=== PATIENT | female | born 1930 | race Caucasian/White ===

== ENCOUNTER 2020-02-28 16:30 | Observation (INO) | payer MEDICARE, BC ==
--- NOTE | 2020-02-28 17:25 | PCM.HP.2 ---
H&P History of Present Illness - General Date of Service: 02/28/20 Admit Problem/Dx: Fall and weakness, LE swelling. Decreased appetite Source of Information: Other (PALLET [employer]ER notes reviwed and patient history and physical ) History Limitations: Reports: Other (weakness risk for falls) - History of Present Illness Onset of Symptoms: Reports: Other (weeks progressively worsening) Symptom Onset Date: 02/27/20 (Fell one day ago) Duration of Symptoms: Reports: Week(s): Location: Reports: Back, Lower Extremity, Right Severity: Moderate Improves with: Reports: None Worsens with: Reports: Movement Associated Symptoms: Reports: Weakness Other HPI/Comments: No LE or back pain noted. 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: Musculoskeletal History: Reports: Other (See Below) (old compression fx history) H&P Review of Systems - Review of Systems: Review Of Systems: See Below General: Reports: Weakness, Fatigue HEENT: Reports: No Symptoms Pulmonary: Reports: No Symptoms Cardiovascular: Reports: No Symptoms Gastrointestinal: Reports: No Symptoms Genitourinary: Reports: Frequency, Urgency Musculoskeletal: Reports: Muscle Stiffness (lower extremity weakness) Skin: Reports: No Symptoms Psychiatric: Reports: No Symptoms Neurological: Reports: No Symptoms Hematologic/Lymphatic: Reports: Easy Bruising Immunologic: Reports: No Symptoms Exam - Exam Exam: See Below - Exam General: Alert, Oriented, Cooperative HEENT: PERRLA Neck: Supple, Trachea Midline Lungs: Clear to Auscultation, Normal Respiratory Effort Cardiovascular: Regular Rate, Regular Rhythm GI/Abdominal Exam: Normal Bowel Sounds, Soft, Non-Tender (Female) Exam: Deferred Rectal (Female) Exam: Deferred Back Exam: Other (derferred in bed) Extremities: Pedal Edema (2+) Peripheral Pulses: 2+: Posterior Tibial (L), Posterior Tibial (R) Skin: Warm, Dry, Intact Neurological: Cranial Nerves Intact Neuro Extensive - Mental Status: Alert, Oriented x3, Normal Mood/Affect, Normal Cognition, Memory Intact Neuro Extensive - Motor, Sensory, Reflexes: CN II-XII Intact Psychiatric: Alert, Normal Affect, Normal Mood - Patient Data Lab Results Last 24 hrs: Drawn in clinic refer to chart. #1 Interpretation EKG Date: 02/28/20 Rhythm: NSR (Normal ECG) Sepsis Event Note - Evaluation Current Stage of Sepsis: Ruled Out Reason for Ruling Out Sepsis: WBC count WNL. *Q Meaningful Use (ADM) - VTE *Q VTE Mechanical Contraindications *Q: At Risk for Falls - VTE Risk Assess *Q Each Risk Factor Represents 1 Point: Swollen Legs, Current, Obesity ( BMI > 25 kg/m2), Congestive heart failure (CHF), Medical Patient Currently on Bedrest Total Score 1 Point Risk Factors: 4 Each Risk Factor Represents 3 Points: Age 75 Years or Greater (non smoker) Total Score 3 Point Risk Factors: 3 - Problem List (1) Edema due to congestive heart failure SNOMED Code(s): 506837759, 826288009 ICD Code: I50.9 - HEART FAILURE, UNSPECIFIED Status: Acute Priority: Medium Current Visit: Yes (2) Weakness generalized SNOMED Code(s): 85075771 ICD Code: R53.1 - WEAKNESS Status: Chronic Priority: Medium Current Visit: Yes (3) Fall SNOMED Code(s): 7563234, 944943294 ICD Code: W19.XXXA - UNSPECIFIED FALL, INITIAL ENCOUNTER Status: Acute Priority: Medium Current Visit: Yes Qualifiers: Encounter type: initial encounter Qualified Code(s): W19.XXXA - Unspecified fall, initial encounter Problem List Initiated/Reviewed/Updated: Yes Orders Last 24hrs: Active Orders 24 hr Category Date Time Status Voluntary Admission [RC] ASDIRECTED Care 02/28/20 17:17 Ordered Lumbar Spine wo Cont [CT] Routine Exams 02/28/20 17:09 Ordered Pelvis w wo Cont [CT] Routine Exams 02/28/20 17:11 Ordered CORONAVIRUS COVID-19 RAPID [MOLEC] Stat Lab 02/28/20 17:12 Ordered CULTURE MRSA SURVEY [RM] Routine Lab 02/28/20 17:18 Ordered Furosemide [Lasix] Med 02/28/20 17:30 Pending 80 mg PO DAILY Medication Orders Furosemide (Lasix) 80 mg PO DAILY ROSEANNA Stop: 03/01/20 08:01 Assessment/Plan Comment:: 1)Re check CMP in AM. 2)Get CT Lumbar, pelvis, thoracic spine. 3)Order Lasix 80mg to be given now. Then 40mg BID. 4)MRI pelvis. 5)PT consult. 6)Order Met Bone tumor marker labs. - Mortality Measure Prognosis:: Good
[2020-02-28] MEDS ORDERED: Furosemide 80 MG Tab PO ONE (18:00)
[2020-02-28] MEDS: Enoxaparin 40 MG/0.4 ML Syringe SUBCUT SCH (19:50)
--- NOTE | 2020-02-28 20:11 | PCM.CONS ---
H&P History of Present Illness - General Date of Service: 02/28/20 Admit Problem/Dx: Fall and weakness, LE swelling. Decreased appetite - History of Present Illness Initial Comments - Free Text/Narative: Amy Ghotra Hospitalist ADMISSION SUPPORT NOTE eHospitalist was contacted by Nelly Bermudez with request of admission support. Chief complaint: Weakness and frequent falls HPI: The patient reports gradual weakness over the past month. She states "I just fall down all the time". She describes that her legs get shaky and then she "just goes down". She has had at least 2 falls over the past month. Last night EMS was called to assist her and then recommended that she follow-up with her provider and so she came in today for evaluation. She reports weight loss of about 7 to 8 pounds over the past few months. She denies hitting her head or any loss of consciousness during the falls. She has right shoulder chronic pain and gets injections in that shoulder to help manage the pain. Review of systems other than mentioned above is negative - Related Data Allergies/Adverse Reactions: Allergies Allergy/AdvReac Type Severity Reaction Status Date / Time gadobenate dimeglumine Allergy Anaphylactic Verified 02/28/20 18:11 [From Multihance] Shock SOPHIE Inhibitors AdvReac Cough Verified 02/28/20 18:11 Home Medications: Home Meds Furosemide [Lasix] 40 mg PO BID 02/28/20 [History] Metoprolol Tartrate 37.5 mg PO BID 02/28/20 [History] Simvastatin 40 mg PO DAILY 02/28/20 [History] Past Medical History HEENT History: Reports: Impaired Vision, Macular Degeneration Cardiovascular History: Reports: Heart Failure (Hypertension) 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: Musculoskeletal History: Reports: Other (See Below) (old compression fx history) Endocrine/Metabolic History: Reports: Osteoporosis Oncologic (Cancer) History: Reports: Breast - Infectious Disease History Infectious Disease History: Reports: Chicken Pox, Measles, Mumps - Past Surgical History HEENT Surgical History: Reports: None Cardiovascular Surgical History: Reports: None Musculoskeletal Surgical History: Reports: Hip Replacement Oncologic Surgical History: Reports: Lumpectomy, Other (See Below) Other Oncologic Surgeries/Procedures: 30 years ago, Left side - History Comment History Comment: Home Medications: Reviewed see EMR for details. Pertinent Medical History: Breast cancer, HTN, dyslipidemia, right lumpectomy, bilateral cataract surgery, left total hip arthroplasty. Pertinent Social History: , denies smoking or drugs of abuse, she rarely drinks alcohol Social & Family History - Tobacco Use Tobacco Use Status *Q: Never Tobacco User Second Hand Smoke Exposure: No - Caffeine Use Caffeine Use: Reports: Coffee - Recreational Drug Use Recreational Drug Use: No H&P Review of Systems - Review of Systems: Review Of Systems: Comprehensive ROS is negative, except as noted in HPI. Exam - Exam Exam: See Below - Vital Signs Vital Signs: Last Vital Signs Temp 36.2 C 02/28/20 16:39 Pulse 63 02/28/20 16:39 Resp 16 02/28/20 16:39 BP 196/85 H 02/28/20 16:39 Pulse Ox 97 02/28/20 16:39 Weight: 66.224 kg - Exam Physical Exam Comments:: Exam (performed via interactive video with assistance of bedside nurse): General: Alert, cooperative, no acute distress HEENT: Pupils reported ERRL, oral mucosa pink and moist without erythema Lungs: Normal effort with diminished breath sounds at right base CV: Regular rate and rhythm without loud murmur rub or gallop Abdomen: Soft, nontender, nondistended Ext: No pitting edema noted Skin: No rashes, bruises or lesions appreciated on gross visualization of exposed skin Neuro: Alert, oriented x 3. CN III -VII, XI, XII grossly intact, moves all extremities without any significant focal deficit - Patient Data Lab Results Last 24 hrs: Laboratory Results - last 24 hr 02/28/20 02/28/20 02/28/20 Range/Units 16:25 17:48 18:00 Whole Blood INR 0.9 L (1.0-3.5) D-Dimer, Quantitative 1180 H (0-400) ng/mL SARS-CoV-2 RNA (KAMILA) Negative (NEGATIVE) Sepsis Event Note - Evaluation Sepsis Screening Result: No Definite Risk - Focused Exam Vital Signs: Vital Signs Temp Pulse Resp BP Pulse Ox 02/28/20 16:39 36.2 C 63 16 196/85 H 97 *Q Meaningful Use (ADM) - VTE *Q VTE Mechanical Contraindications *Q: At Risk for Falls Consult PN Assessment/Plan Procedures: Procedures ASSAY OF NATRIURETIC PEPTIDE (07/27/19) ASSAY OF TROPONIN QUANT (12/03/14) ASSAY THYROID STIM HORMONE (07/27/19) C-REACTIVE PROTEIN HS (07/27/19) CHEST X-RAY 1 VIEW FRONTAL (12/03/14) CHEST X-RAY 2VW FRONTAL&LATL (04/10/15) COMP SCREEN MAMMOGRAM ADD-ON (12/16/15) COMPLETE CBC W/AUTO DIFF WBC (12/14/19) COMPREHEN METABOLIC PANEL (07/27/19) CRITICAL CARE ADDL 30 MIN (12/03/14) CRITICAL CARE FIRST HOUR (12/03/14) CT HEAD/BRAIN W/O DYE (11/20/14) DXA BONE DENSITY AXIAL (01/24/19) ELECTROCARDIOGRAM TRACING (07/27/19) EMERGENCY DEPT VISIT (12/03/14) EXTRACRANIAL BILAT STUDY (08/02/19) GAIT TRAINING THERAPY (08/29/19) HYDRATE IV INFUSION ADD-ON (12/03/14) INSERT TEMP BLADDER CATH (12/03/14) LIPID PANEL (01/08/19) MAMMOGRAM SCREENING (11/03/12) METABOLIC PANEL TOTAL CA (12/14/19) MRI BRAIN STEM W/O & W/DYE (12/03/14) NEUROMUSCULAR REEDUCATION (05/11/19) PT EVAL LOW COMPLEX 20 MIN (10/11/19) RBC SED RATE NONAUTOMATED (07/27/19) ROUTINE VENIPUNCTURE (12/14/19) SCR MAMMO BI INCL CAD (01/08/19) THER/PROPH/DIAG INJ IV PUSH (12/03/14) THER/PROPH/DIAG INJ SC/IM (12/03/14) THER/PROPH/DIAG IV INF INIT (12/03/14) THERAPEUTIC ACTIVITIES (10/24/19) THERAPEUTIC EXERCISES (10/24/19) TISSUE EXAM BY PATHOLOGIST (12/25/12) TX GASTRO INTUB W/ASP (12/03/14) TX/PRO/DX INJ NEW DRUG ADDON (12/03/14) URINALYSIS AUTO W/SCOPE (07/27/19) URINE CULTURE/COLONY COUNT (07/27/19) VITAMIN B-12 (07/27/19) VITAMIN D 25 HYDROXY (07/27/19) X-RAY EXAM HIP UNI 2-3 VIEWS (07/16/19) X-RAY EXAM OF HIP (03/26/13) X-RAY EXAM OF SHOULDER (01/21/20) Problem List Initiated/Reviewed/Updated: Yes Plan: Recent lab/Imaging: Reviewed see EMR for details Assessment and Plan: 1. Frequent falls and weakness-I think this is mostly related to deconditioning. I am getting the impression that her weakness has been progressive. PT/OT to evaluate 2. Sclerosis of sacrum-concern for metastatic disease this will require further evaluation 3. Elevated BNP-I am uncertain whether this patient has a history of heart failure. She is on maintenance twice daily Lasix. She appears euvolemic. 2D echo to assess cardiac function 4. Renal insufficiency-monitor 5. Elevated calcium-obtain ionized calcium in a.m. 6. DVT prophylaxis-Lovenox 7. CODE STATUS full code-discussed with patient Chart review was performed as well as evaluation of the patient via video. Thank you for involving ehospitalist. Please contact [phone] if further assistance is needed.
[2020-02-28] MEDS: Metoprolol Tartrate 25 MG Tab*PT OWN MED PO SCH (20:21)
[2020-02-28] MEDS ORDERED: Ondansetron 4 MG/2 ML SDV IV PRN (20:51)
[2020-02-28] MEDS ORDERED: Sodium Chloride 0.9% 10 ML Syringe FLUSH PRN (20:51)
[2020-02-28] MEDS ORDERED: Acetaminophen 325 MG Tab PO PRN (20:51)
[2020-02-28] MEDS ORDERED: Potassium Chloride 20 MEQ Tab.ER ONE (20:51)
[2020-02-29] MEDS ORDERED: Furosemide 40 MG Tab PO SCH (06:00)
[2020-02-29] MEDS: Furosemide 20 MG Tab *PT OWN MED PO SCH ×2 (07:41→17:42)
[2020-02-29] MEDS: Metoprolol Tartrate 25 MG Tab*PT OWN MED PO SCH ×2 (07:41→19:50)
--- NOTE | 2020-02-29 07:41 | CT ---
DATE OF SERVICE: 02/28/20 CLINICAL DATA: fall UNENHANCED PELVIC CT: Multislice axial acquisition was performed. Axial images and sagittal and coronal reformations are reviewed. The patient is status post right total hip arthroplasty. The prosthesis appears intact. There are chronic fractures of the right superior and inferior pubic rami. They do not appear significantly changed from plain films dated 07/16/19. There is marked sclerosis within the sacrum at the S1 level. This may be related to prior trauma. The possibility of sclerotic metastatic disease should be considered. I do not see any acute fractures of the pelvis or sacrum. There is degenerative disc disease in the lower lumbar spine. [id number] [facility]
[2020-02-29] MEDS: Enoxaparin 40 MG/0.4 ML Syringe SUBCUT SCH (09:27)
[2020-02-29] MEDS ORDERED: Potassium Chloride 20 MEQ Tab.ER PO ONE (10:49)
--- NOTE | 2020-02-29 12:12 | CT ---
DATE OF SERVICE: 02/28/20 CLINICAL DATA: fall LUMBAR SPINE CT: Multislice axial acquisition from T9 to S5 was performed. Axial images and sagittal and coronal reformations are reviewed. No priors. There is diffuse osteopenia. There is a severe compression fracture of the T12 vertebra with approximately 80 to 90% loss of height. This does appear to be chronic. The posterior cortex is displaced posteriorly approximately 5 mm producing some narrowing of the spinal canal in the AP dimension. There is also a partial compression fracture of the T10 vertebra with approximately 40 to 50% loss of height anteriorly. This also appears to be chronic. I do not see any definite acute fractures. There is degenerative disc disease throughout the lumbar spine. There is central and foraminal stenosis at multiple levels. I do not see any extruded or protruding discs. There is extensive sclerosis within the sacrum at the S1 level. The possibility of sclerotic metastatic disease should be considered. There is calcification of the abdominal aorta. No aneurysm. There are degenerative changes including the SI joints bilaterally. No other significant findings. [id number] [facility]
[2020-03-01] MEDS ORDERED: Furosemide 20 MG Tab *PT OWN MED PO SCH (06:00)
[2020-03-01] MEDS ORDERED: Enoxaparin 30 MG/0.3 ML Syringe SUBCUT SCH (08:00)
[2020-03-01] MEDS: Metoprolol Tartrate 25 MG Tab*PT OWN MED PO SCH (09:33)
[2020-03-01 09:34] VITALS: BP 117/98; PULSE 81
--- NOTE | 2020-03-01 11:28 | PCM.DCSUM1 ---
Discharge Summary - Hospital Course Free Text/Narrative:: Discharge patient home with daughter. FU Tuesday for Echo and with PCP next week. HPI Initial Comments: MS. Busby has a history of Falls and generalized weakness. Today she is stable with no acute symptoms. She is to FU with her PCP for further Dx, evaluation and treatments. Diagnosis: Stroke: No Modified Ray Scale: Mod.Disablility Requiring Some Help,Able to Walk Without Assistance Modified Ray Scale Score: 3 - Discharge Data Discharge Date: 03/01/20 Discharge Disposition: Home, Self-Care Condition: Good - Referral to Home Health Primary Care Physician: PCP None - Discharge Diagnosis/Problem(s) (1) Edema due to congestive heart failure SNOMED Code(s): 247284315, 366842868 ICD Code: I50.9 - HEART FAILURE, UNSPECIFIED Status: Acute Priority: Medium Current Visit: Yes (2) Weakness generalized SNOMED Code(s): 34993017 ICD Code: R53.1 - WEAKNESS Status: Chronic Priority: Medium Current Visit: Yes (3) Fall SNOMED Code(s): 5330289, 008082796 ICD Code: W19.XXXA - UNSPECIFIED FALL, INITIAL ENCOUNTER Status: Acute Priority: Medium Current Visit: Yes Qualifiers: Encounter type: initial encounter Qualified Code(s): W19.XXXA - Unspecified fall, initial encounter - Patient Summary/Data Consults: Consultations 02/28/20 17:44 PT Evaluation and Treatment [CONS] Routine Please Evaluate and Treat. PT Reason for Consult: Ambulation This query below is only for informational purposes and is not editable. - Patient Instructions Diet: Heart Healthy Diet Activity: As Tolerated Other/Special Instructions: Increased swelling, loss of apetite or wt. loss. - Discharge Plan *PRESCRIPTION DRUG MONITORING PROGRAM REVIEWED*: Not Applicable *COPY OF PRESCRIPTION DRUG MONITORING REPORT IN PATIENT SIMI: Not Applicable Home Medications: Home Meds Furosemide [Lasix] 40 mg PO BID 02/28/20 [History] Metoprolol Tartrate 37.5 mg PO BID 02/28/20 [History] Simvastatin 40 mg PO DAILY 02/28/20 [History] Patient Handouts: Heart Failure, Self Care, [id number] - Discharge Summary/Plan Comment DC Time >30 min.: No Discharge Summary/Plan Comment: Echo Tuesday PCP ext week Potassium Rx given for daily dose. - General Info Admission Dx/Problem (Free Text: Fall and weakness, LE swelling. Decreased appetite Functional Status: Reports: Tolerating Diet, Other (ambulates with assistance) - Review of Systems General: Reports: No Symptoms HEENT: Reports: No Symptoms Pulmonary: Reports: No Symptoms Cardiovascular: Reports: Edema Gastrointestinal: Reports: No Symptoms Genitourinary: Reports: No Symptoms Musculoskeletal: Reports: No Symptoms Skin: Reports: No Symptoms Neurological: Reports: No Symptoms Psychiatric: Reports: Confusion - Patient Data Vitals - Most Recent: Last Vital Signs Temp 36.8 C 02/29/20 19:52 Pulse 81 03/01/20 09:33 Resp 16 03/01/20 05:00 BP 117/98 H 03/01/20 09:33 Pulse Ox 96 03/01/20 05:00 Weight - Most Recent: 63.866 kg I&O - Last 24 hours: Intake & Output 02/29/20 03/01/20 03/01/20 22:59 06:59 14:59 Intake Total 940 150 Output Total 650 300 Balance 290 -150 Lab Results - Last 24 hrs: Laboratory Results - last 24 hr 03/01/20 Range/Units 06:45 Potassium 3.1 L (3.5-5.1) mmol/L Calcium 11.2 H (8.5-10.1) mg/dL XOCHILT Results - Last 24 hrs: Microbiology 02/28/20 17:18 MRSA Surveillance Culture - Final Nares, Left NO MRSA ISOLATED Med Orders - Current: Current Medications Acetaminophen (Tylenol) 650 mg PO Q4H PRN PRN Reason: Pain (Mild 1-3)/fever Last Admin: 02/29/20 23:57 Dose: 650 mg Documented by: Enoxaparin Sodium (Lovenox) 30 mg SUBCUT DAILY [facility] Last Admin: 03/01/20 09:34 Dose: 30 mg Documented by: Furosemide (Lasix) 40 mg PO BID@0600,1400 [facility] Last Admin: 03/01/20 06:03 Dose: 40 mg Documented by: Metoprolol Tartrate (Lopressor) 37.5 mg PO Q12H [facility] Last Admin: 03/01/20 09:33 Dose: 37.5 mg Documented by: Ondansetron HCl (Zofran) 4 mg IV Q4H PRN PRN Reason: Nausea/Vomiting Senna/Docusate Sodium (Senna Plus) 1 tab PO BID PRN PRN Reason: Constipation Simvastatin (Zocor) 40 mg PO BEDTIME [facility] Last Admin: 02/29/20 19:51 Dose: 40 mg Documented by: Sodium Chloride (Saline Flush) 10 ml FLUSH ASDIRECTED PRN PRN Reason: Keep Vein Open Discontinued Medications Enoxaparin Sodium (Lovenox) 40 mg SUBCUT DAILY [facility] Last Admin: 02/29/20 09:27 Dose: 40 mg Documented by: Furosemide (Lasix) 80 mg PO ONETIME ONE Stop: 02/28/20 18:01 Last Admin: 02/28/20 17:54 Dose: 80 mg Documented by: Furosemide (Lasix) 40 mg PO BID@0600,1800 [facility] Stop: 02/29/20 18:01 Furosemide (Lasix) 40 mg PO BID@0600,1800 [facility] Last Admin: 02/29/20 17:42 Dose: 40 mg Documented by: Potassium Chloride (Klor-Con M20) 40 meq PO ONETIME ONE Stop: 02/29/20 10:50 Last Admin: 02/29/20 10:58 Dose: 40 meq Documented by: Senna/Docusate Sodium (Senna Plus) 1 tab PO BID ROSEANNA - Exam General: Reports: Alert, Oriented, Cooperative HEENT: Reports: Pupils Equal, Pupils Reactive Neck: Reports: Supple, Trachea Midline Lungs: Reports: Clear to Auscultation Cardiovascular: Reports: Regular Rate, Regular Rhythm GI/Abdominal Exam: Normal Bowel Sounds, Soft, Non-Tender (Female) Exam: Deferred Rectal (Female) Exam: Deferred Extremities: Other (LE edema ) Skin: Reports: Warm, Dry, Intact Neurological: Reports: No New Focal Deficit Psy/Mental Status: Reports: Alert, Normal Affect, Normal Mood *Q Meaningful Use (DIS) - VTE *Q VTE Mechanical Contraindications *Q: At Risk for Falls
[2020-03-01] MEDS ORDERED: Potassium Chloride 20 MEQ Tab.ER ONE (12:08)
--- NOTE | 2020-03-01 12:48 | CT ---
CLINICAL DATA: Fall. THORACIC SPINE CT, 29 FEBRUARY 2020: There is diffuse osteopenia. There are partial compression fractures involving the T4, T5, T6, T7, T8, T9, T10, and T12 vertebrae. There are vertebroplasty changes at the T5, T6, T7, and T8 levels. The posterior cortex of T12 is displaced posteriorly 4 mm, producing narrowing of the spinal canal in the AP dimension. There is degenerative disk disease throughout the thoracic spine. There is facet joint hypertrophy throughout the thoracic spine. There is a questionable small nodule in the left upper lobe. No focal lytic or blastic bone lesions. Job: [id number] MTDD
== END 2020-03-01 13:00 | disposition home or self-care (01) ==
LOC: LB.MS 16:30 → UNDOADMOB 16:30 → LB.MS 20:51
PROVIDERS: ADMIT Internal Medicine; ATTEND Registered Nurse
DX: R53.1 Weakness (principal); I11.0 Hypertensive heart disease with heart failure; I50.9 Heart failure, unspecified; G89.29 Other chronic pain; G95.89 Other specified diseases of spinal cord; E83.52 Hypercalcemia; Z20.822 Contact with and (suspected) exposure to COVID-19; Z88.8 Allergy status to other drugs, medicaments and biological substances; Z79.899 Other long term (current) drug therapy
CPT/HCPCS: 36415; 72128; 72131; 72192; 80053; 82310; 82330; 84132; 85379; 85610; 86300; 96372; A9270-GY; G0378; G0379; J1650; U0002